=== PATIENT | female | born 1930 | race Caucasian/White ===

== ENCOUNTER → 2016-08-23 | Outpatient (CLI) | payer MEDICARE, OTHER ==
[~2016-08-23] MED LIST: LIDOCAINE 1%/EPI 1:100,000 20 ML VIAL. ONE
== END | disposition home or self-care (01) ==
LOC: PCVCINTER 11:29
PROVIDERS: ATTEND Internal Medicine
DX: Z95.818 Presence of other cardiac implants and grafts (principal)
CPT/HCPCS: 33282; C1764; J3490